=== PATIENT | male | born 1955 | race Hispanic/Latino ===

== ENCOUNTER → 2019-05-09 | Outpatient (CLI) | payer OTHER ==
[~2019-05-09] MED LIST: REGADENOSON 0.4 MG/5 ML PF SYG IVP SCH
== END | disposition home or self-care (01) ==
LOC: SHCH 07:56
PROVIDERS: ATTEND Internal Medicine Cardiovascular Disease
DX: I20.9 Angina pectoris, unspecified (principal); R07.9 Chest pain, unspecified
CPT/HCPCS: 78452; 93017; 96374; A9500 ×2; J2785

== ENCOUNTER → 2020-05-10 | Outpatient (CLI) | payer OTHER ==
[~2020-05-10] VITALS: Ht 177.8 cm; Wt 113.4 kg
[~2020-05-10] MED LIST changes: +ATOR40TA69 PO; +LISI-809 PO; +METF-444 PO; +MULT-1367 PO; +MV-M1TAB20 PO; +PIOG15TA66 PO; -REGADENOSON 0.4 MG/5 ML PF SYG IVP SCH; +Vitamin E
[2020-05-10 10:27] LABS: BASOPHILS % (AUTO) 0.3 % (0.0-5.0); EOSINOPHILS % (AUTO) 1.9 % (0.0-8.0); HEMATOCRIT 40.7 % (42-54); LYMPHOCYTES % (AUTO) 41.3 % (21.0-51.0); MEAN CORPUSCULAR HEMOGLOBIN 29.5 pg (27.0-33.0); MEAN CORPUSCULAR HGB CONC 33.2 g/dL (32.0-36.0); MEAN CORPUSCULAR VOLUME 88.9 fL (79-99); MONOCYTES % (AUTO) 5.9 % (3.0-13.0); NEUTROPHILS % (AUTO) 50.4 % (40.0-77.0); PLATELET COUNT (AUTO) 276 K/uL (130-400); RED BLOOD CELL COUNT(AUTO) 4.58 MIL/uL (4.50-6.20); RED CELL DISTRIBUTION WIDTH 13.5 % (11.0-15.5); WHITE BLOOD COUNT (AUTO) 9.1 K/uL (4.8-10.8)
[2020-05-10 10:28] LABS: APPEARANCE,URINE CLEAR (CLEAR); BILIRUBIN,URINE NEGATIVE (NEGATIVE); COLOR,URINE YELLOW (YELLOW); GLUCOSE, URINE (UA) NEGATIVE (NEGATIVE); KETONES,URINE NEGATIVE (NEGATIVE); LEUKOCYTE ESTERASE ,URINE NEGATIVE (NEGATIVE); NITRATE,URINE NEGATIVE (NEGATIVE); OCCULT BLOOD,URINE TRACE-LYSED (NEGATIVE); PROTEIN,URINE NEGATIVE (NEGATIVE); UROBILINOGEN,URINE 0.2 mg/dL (0.2-1.0)
[2020-05-10 10:36] LABS: CREATININE 0.8 mg/dL (0.5-1.5); POTASSIUM 4.2 mmol/L (3.5-5.1)
[2020-05-10 10:42] LABS: INR 1.14 (0.85-1.15); PROTHROMBIN TIME 12.3 SEC (9.6-11.6)
[2020-05-10 10:43] LABS: BACTERIA,URINE None Seen /HPF (None Seen); MUCUS,URINE Moderate LPF (None Seen); RBC,URINE 0-1 /HPF (0-1); SQUAMOUS EPITHELIAL CELL,UR 0-2 /HPF (0-2); WBC,URINE None Seen /HPF (0-1)
[2020-05-10 10:43] LABS: PARTIAL THROMBOPLASTIN TIME 27.7 SEC (26.3-35.5)
[2020-05-11 13:01] VITALS: BP 131/73
== END | disposition home or self-care (01) ==
LOC: EDSTATUS 09:00 → DAH 10:00
PROVIDERS: ATTEND Internal Medicine Cardiovascular Disease
DX: Z01.818 Encounter for other preprocedural examination (principal); I35.0 Nonrheumatic aortic (valve) stenosis; Z79.01 Long term (current) use of anticoagulants
CPT/HCPCS: 36415; 71045; 80048; 81001; 85025; 85610; 85730; 93005; A6260

== ENCOUNTER 2020-05-25 08:49 | Day surgery (SDC) | payer OTHER ==
[2020-05-21 14:24] LABS: BASOPHILS % (AUTO) 0.4 % (0.0-5.0); HEMATOCRIT 40.6 % (42-54); LYMPHOCYTES % (AUTO) 42.9 % (21.0-51.0); MEAN CORPUSCULAR HEMOGLOBIN 29.4 pg (27.0-33.0); MEAN CORPUSCULAR HGB CONC 32.5 g/dL (32.0-36.0); MEAN CORPUSCULAR VOLUME 90.4 fL (79-99); MONOCYTES % (AUTO) 4.4 % (3.0-13.0); NEUTROPHILS % (AUTO) 49.1 % (40.0-77.0); PLATELET COUNT (AUTO) 314 K/uL (130-400); RED BLOOD CELL COUNT(AUTO) 4.49 MIL/uL (4.50-6.20); RED CELL DISTRIBUTION WIDTH 13.6 % (11.0-15.5); WHITE BLOOD COUNT (AUTO) 12.3 K/uL (4.8-10.8)
[2020-05-21 14:26] LABS: APPEARANCE,URINE Clear (CLEAR); BILIRUBIN,URINE Negative (NEGATIVE); COLOR,URINE Yellow (YELLOW); GLUCOSE, URINE (UA) Negative (NEGATIVE); KETONES,URINE Trace mg/dL (NEGATIVE); LEUKOCYTE ESTERASE ,URINE Negative (NEGATIVE); NITRATE,URINE Negative (NEGATIVE); OCCULT BLOOD,URINE Negative (NEGATIVE); PH,URINE 5.5 (5.0-8.0); PROTEIN,URINE Negative (NEGATIVE)
[2020-05-21 14:35] LABS: INR 1.13 (0.85-1.15); PROTHROMBIN TIME 12.2 SEC (9.6-11.6)
[2020-05-21 14:36] LABS: PARTIAL THROMBOPLASTIN TIME 28.2 SEC (26.3-35.5)
[2020-05-21 14:37] LABS: CREATININE 0.8 mg/dL (0.5-1.5); POTASSIUM 4.4 mmol/L (3.5-5.1)
[2020-05-21 14:42] LABS: BACTERIA,URINE None Seen /HPF (None Seen); RBC,URINE None Seen /HPF (0-1); SQUAMOUS EPITHELIAL CELL,UR Rare /HPF (0-2); WBC,URINE 0-1 /HPF (0-1)
[2020-05-24 10:00] VITALS: BP 135/65
[2020-05-25] VITALS (12 sets, daily range): BP systolic 119–183; BP diastolic 60–99
[~2020-05-25] VITALS: Ht 177.8 cm; Wt 114.0 kg
[~2020-05-25 08:49] MED LIST changes: -MV-M1TAB20 PO; +SODIUM CHLORIDE 0.9% 1000ML 1,000 ML IV SCH; -Vitamin E
[2020-05-25 10:12] LABS: BASOPHILS % (AUTO) 0.4 % (0.0-5.0); EOSINOPHILS % (AUTO) 2.1 % (0.0-8.0); HEMATOCRIT 38.4 % (42-54); LYMPHOCYTES % (AUTO) 47.7 % (21.0-51.0); MEAN CORPUSCULAR HEMOGLOBIN 29.8 pg (27.0-33.0); MEAN CORPUSCULAR HGB CONC 33.6 g/dL (32.0-36.0); MEAN CORPUSCULAR VOLUME 88.7 fL (79-99); MONOCYTES % (AUTO) 6.4 % (3.0-13.0); NEUTROPHILS % (AUTO) 43.3 % (40.0-77.0); PLATELET COUNT (AUTO) 275 K/uL (130-400); RED BLOOD CELL COUNT(AUTO) 4.33 MIL/uL (4.50-6.20); RED CELL DISTRIBUTION WIDTH 13.4 % (11.0-15.5)
[2020-05-25] MEDS ORDERED: MULT-1367 PO (11:34)
[2020-05-25] MEDS ORDERED: Vitamin E (11:34)
[2020-05-25] MEDS ORDERED: MV-M1TAB20 PO (11:34)
[2020-05-25] MEDS ORDERED: IOHEXOL 350 MG/ML 100ML INFUS..BTL IV ONE (12:20)
[2020-05-25] MEDS ORDERED: HEPARIN SODIUM 1000UNIT/ML 10ML VIAL ONE (12:20)
[2020-05-25] MEDS ORDERED: MIDAZOLAM HCL 1 MG/ML 2ML VIAL ONE (12:20)
[2020-05-25] MEDS ORDERED: FENTANYL CITRATE PF 50 MCG/1 ML 2ML VIAL ONE (12:21)
[2020-05-25] MEDS ORDERED: LIDOCAINE HCL 1% MDV 50ML VIAL ONE (12:21)
[2020-05-25] MEDS ORDERED: NITROGLYCERIN 2 MG/VIAL VIAL IV ONE (12:41)
[2020-05-25] MEDS ORDERED: DEXTROSE 50%-WATER 50 ML DISP.SYRIN IV PRN (13:15)
[2020-05-25] MEDS ORDERED: GLUCAGON 1MG KIT 1 MG ML IM PRN (13:15)
[2020-05-25] MEDS ORDERED: IOHEXOL-350 50ML VIAL IV ONE (16:12)
[2020-05-25] MEDS ORDERED: IOHEXOL-350 75 ML VIAL IV ONE (16:19)
== END 2020-05-25 18:00 | disposition home or self-care (01) ==
LOC: DAH 08:49
PROVIDERS: ATTEND Internal Medicine Cardiovascular Disease
DX: I35.0 Nonrheumatic aortic (valve) stenosis (principal); I25.119 Atherosclerotic heart disease of native coronary artery with unspecified angina pectoris; I11.0 Hypertensive heart disease with heart failure; I50.32 Chronic diastolic (congestive) heart failure; E11.51 Type 2 diabetes mellitus with diabetic peripheral angiopathy without gangrene; E78.5 Hyperlipidemia, unspecified; Z98.890 Other specified postprocedural states; Z90.89 Acquired absence of other organs; Z90.49 Acquired absence of other specified parts of digestive tract; Z79.899 Other long term (current) drug therapy; Z79.84 Long term (current) use of oral hypoglycemic drugs; Z82.49 Family history of ischemic heart disease and other diseases of the circulatory system; Z83.3 Family history of diabetes mellitus; Z79.01 Long term (current) use of anticoagulants; Z72.89 Other problems related to lifestyle
CPT/HCPCS: 36415 ×2; 71045; 71270; 80048; 81001; 82948 ×2; 85025 ×2; 85610; 85730; 93005; 93456; A4215; A4216; A4221; A4222; A4223 ×3; A4606; A4663; C1760; C1894 ×3; J1644 ×2; J2250; J3010; J3490 ×2; J7030; Q9965 ×2; Q9967 ×2; 99156; 99157

== ENCOUNTER 2020-06-08 10:00 | Inpatient (IN) | payer OTHER ==
[~2020-06-08] VITALS: Ht 177.8 cm; Wt 116.4 kg
[~2020-06-08 10:00] MED LIST changes: -LISI-809 PO; +LISI5TAB21 PO; -SODIUM CHLORIDE 0.9% 1000ML 1,000 ML IV SCH
[2020-06-09 16:00] LABS: BASOPHILS % (AUTO) 0.3 % (0.0-5.0); HEMATOCRIT 39.7 % (42-54); MEAN CORPUSCULAR HEMOGLOBIN 29.4 pg (27.0-33.0); MONOCYTES % (AUTO) 6.4 % (3.0-13.0); PLATELET COUNT (AUTO) 307 K/uL (130-400); RED BLOOD CELL COUNT(AUTO) 4.46 MIL/uL (4.50-6.20); RED CELL DISTRIBUTION WIDTH 13.6 % (11.0-15.5); WHITE BLOOD COUNT (AUTO) 11.5 K/uL (4.8-10.8)
[2020-06-09 16:01] LABS: APPEARANCE,URINE Clear (CLEAR); BILIRUBIN,URINE Negative (NEGATIVE); COLOR,URINE Yellow (YELLOW); GLUCOSE, URINE (UA) Negative (NEGATIVE); KETONES,URINE Negative (NEGATIVE); LEUKOCYTE ESTERASE ,URINE Negative (NEGATIVE); NITRATE,URINE Negative (NEGATIVE); OCCULT BLOOD,URINE Negative (NEGATIVE); PROTEIN,URINE Negative (NEGATIVE)
[2020-06-09 16:13] LABS: INR 1.1 (0.85-1.15); PROTHROMBIN TIME 11.9 SEC (9.6-11.6)
[2020-06-09 16:16] LABS: ALBUMIN 3.9 g/dL (3.5-5.0); BILIRUBIN,DIRECT 0.1 mg/dL (0.0-0.3); BILIRUBIN,TOTAL 0.3 mg/dL (0.2-1.0); CREATININE 0.8 mg/dL (0.5-1.5); POTASSIUM 4.3 mmol/L (3.5-5.1); TOTAL PROTEIN, SERUM 7.8 g/dL (6.0-8.3)
[2020-06-14 13:13] VITALS: BP 140/68
[2020-06-15] VITALS (40 sets, daily range): BP systolic 80–196; BP diastolic 36–121
[2020-06-15] MEDS: CEFAZOLIN SODIUM 1 GM VIAL IVP SCH ×2 (06:00→08:15)
[2020-06-15] MEDS ORDERED: HEPARIN 10,000 UNIT/10ML (1,000 UNIT/ML) VIAL ONE (06:27)
[2020-06-15] MEDS ORDERED: CEFAZOLIN SODIUM 1 GM VIAL ONE ×2 (06:27→11:12)
[2020-06-15] MEDS ORDERED: PAPAVERINE HCL 30 MG/ML 2ML VIAL ONE (06:28)
[2020-06-15] MEDS ORDERED: NOREPINEPHRINE BITARTRATE 8 MG in 0.9% NACL 250ML 250 ML IV PRN (06:30)
[2020-06-15] MEDS ORDERED: 0.9%NACL 1000ML 1,000 ML IV ONE ×2 (06:46→12:07)
[2020-06-15] MEDS ORDERED: EPINEPHRINE PF 1MG AMP 10 MG in 0.9% NACL 250ML 240 ML IV PRN (06:51)
[2020-06-15] MEDS ORDERED: AMINOCAPROIC ACID 5,000MG VIAL 15,000 MG in 0.9% NACL 500ML IV.SOLN 420 ML IV PRN (06:58)
[2020-06-15] MEDS ORDERED: NITROGLYCERIN 50MG/D5W 250ML 1 BOT ONE (07:03)
[2020-06-15] MEDS ORDERED: AMIODARONE 150MG VIAL ONE (07:03)
[2020-06-15] MEDS ORDERED: DELNIDO FORMULA 2 BAG IV ONE (07:11)
[2020-06-15] MEDS ORDERED: NOREPINEPHRINE BITARTRATE 1 MG/1 ML ML IV ONE ×2 (07:22→07:53)
[2020-06-15] MEDS ORDERED: EPINEPHRINE PF 1MG AMP IVP ONE (07:53)
[2020-06-15] MEDS ORDERED: AMINOCAPROIC ACID 5,000MG VIAL IV ONE ×2 (07:53→15:58)
[2020-06-15] MEDS ORDERED: SODIUM BICARB 8.4% 50ML SYRINGE IVP ONE ×2 (07:53→15:58)
[2020-06-15] MEDS ORDERED: HEPARIN 10,000 UNIT/10ML (1,000 UNIT/ML) VIAL IV ONE ×2 (07:53→15:58)
[2020-06-15] MEDS ORDERED: ESMOLOL HCL 10 MG/ML 10 ML VIAL IVP ONE (07:53)
[2020-06-15] MEDS ORDERED: LIDOCAINE PF 100MG/5ML (2%) SYRINGE 5ML IVP ONE (07:53)
[2020-06-15] MEDS ORDERED: PROTAMINE SULFATE 10 MG/ML 25ML VIAL IV ONE (07:53)
[2020-06-15] MEDS ORDERED: PROPOFOL 10 MG/ML 20ML VIAL IV ONE (07:54)
[2020-06-15] MEDS ORDERED: FENTANYL CITRATE PF 50 MCG/1 ML 2ML VIAL IJ ONE (07:54)
[2020-06-15] MEDS ORDERED: MIDAZOLAM HCL 1 MG/ML 2ML VIAL IVPB ONE (07:55)
[2020-06-15] MEDS ORDERED: ROCURONIUM 10MG/1ML SYR 10 MG/ML ML IV ONE (07:55)
[2020-06-15] MEDS ORDERED: KETAMINE 50MG/ML SYRINGE 50 MG/ML DISP.SYRIN IV ONE (07:55)
[2020-06-15 08:11] LABS: ABG BASE EXCESS -1.2 mmol/L (-2.0-3.0); ABG HCO3 25.1 mmol/L (21.0-28.0); ABG OXYGEN SATURATION 99.1 % (95.0-99.0); ABG PCO2 48 mmHg (35-48)
[2020-06-15] MEDS ORDERED: CEFAZOLIN SODIUM 1 GM VIAL IVP ONE (08:15)
[2020-06-15] MEDS ORDERED: DELNIDO FORMULA 1 BAG IV ONE (09:38)
[2020-06-15] MEDS ORDERED: ANTITHROMBIN III 500 UNIT VIAL IV SCH ×2 (09:42→09:56)
[2020-06-15] MEDS ORDERED: ROCURONIUM BROMIDE 10MG/1ML 5ML VL ONE (10:36)
[2020-06-15] MEDS ORDERED: GLYCOPYRROLATE 1 MG/5 ML SYRINGE IV ONE (11:53)
[2020-06-15] MEDS ORDERED: THROMBIN-JMI 20000 UNIT KIT TP ONE (11:58)
[2020-06-15] MEDS ORDERED: ALBUMIN (HUMAN) 5% 250 ML IV ONE (13:07)
[2020-06-15 13:30] LABS: HEMATOCRIT 29.4 % (42-54); MEAN CORPUSCULAR HEMOGLOBIN 29.6 pg (27.0-33.0); MEAN CORPUSCULAR HGB CONC 33.7 g/dL (32.0-36.0); PLATELET COUNT (AUTO) 127 K/uL (130-400); RED BLOOD CELL COUNT(AUTO) 3.34 MIL/uL (4.50-6.20); RED CELL DISTRIBUTION WIDTH 13.6 % (11.0-15.5); WHITE BLOOD COUNT (AUTO) 18.5 K/uL (4.8-10.8)
[2020-06-15 13:36] LABS: ABG BASE EXCESS -3.1 mmol/L (-2.0-3.0); ABG HCO3 20.1 mmol/L (21.0-28.0); ABG OXYGEN SATURATION 97.8 % (95.0-99.0); ABG PCO2 31 mmHg (35-48)
[2020-06-15 13:44] LABS: INR 1.42 (0.85-1.15)
[2020-06-15 13:45] LABS: PARTIAL THROMBOPLASTIN TIME 34.5 SEC (26.3-35.5)
[2020-06-15 13:46] LABS: ALBUMIN 1.9 g/dL (3.5-5.0); BILIRUBIN,TOTAL 0.8 mg/dL (0.2-1.0); CREATININE 0.5 mg/dL (0.5-1.5); MAGNESIUM 1.7 mg/dL (1.80-2.40); PHOSPHORUS 3.2 mg/dL (2.5-4.9); POTASSIUM 3.5 mmol/L (3.5-5.1); TOTAL PROTEIN, SERUM 3.8 g/dL (6.0-8.3)
[2020-06-15 14:03] LABS: BAND NEUTROPHILS % (MANUAL) 10 % (0-2); LYMPHOCYTES % (MANUAL) 3 % (22-44); MONOCYTES % (MANUAL) 9 % (2-9); REACTIVE LYMPHOCYTES 1 % (0-0); SEGMENTED NEUTROPHILS % 77 % (40-70)
[2020-06-15 14:04] LABS: MAN.DIFF COMMENT-IMPRESSION MANUAL DIFFERENTIAL; PLATELET MORPHOLOGY COMMENT SLIGHTLY DECREASED
[2020-06-15] MEDS ORDERED: MAGNESIUM 2GM PREMIX 50ML 50 ML IV ONE (14:12)
[2020-06-15] MEDS ORDERED: POTASSIUM CHLORIDE 20MEQ/100ML 100 ML IV ONE (14:12)
[2020-06-15] MEDS ORDERED: CALCIUM GLUC 1GM 1 GM in 0.9%NACL 50ML 50 ML IV SCH (14:30)
[2020-06-15] MEDS ORDERED: MORPHINE 4 MG SYG IVP PRN (14:30)
[2020-06-15] MEDS ORDERED: NOREPINEPHRIN 8MG/250ML NS PMX 250 ML IV SCH (14:30)
[2020-06-15] MEDS ORDERED: ALBUMIN (HUMAN) 5% 250 ML IV SCH (14:30)
[2020-06-15] MEDS ORDERED: PROPOFOL 1000 MG/100 ML 100 ML IV SCH (14:30)
[2020-06-15] MEDS ORDERED: NITROGLYCERIN 50MG/D5W 250ML 250 BOT IV SCH (14:30)
[2020-06-15] MEDS ORDERED: 0.9% NACL 250ML 250 ML IV SCH (14:30)
[2020-06-15] MEDS ORDERED: NICARDIPINE 100 MG/100ML IV SCH ×2 (14:30)
[2020-06-15] MEDS ORDERED: ONDANSETRON 4MG INJ IVP PRN (14:30)
[2020-06-15] MEDS ORDERED: ACETAMINOPHEN 650 MG SUPPOSITORY RC PRN (14:30)
[2020-06-15] MEDS ORDERED: MAGNESIUM 2GM PREMIX 50ML 50 ML IV SCH (14:30)
[2020-06-15] MEDS ORDERED: ACETAMINOPHEN 325 MG TAB PO PRN (14:30)
[2020-06-15] MEDS ORDERED: LIDOCAINE HCL-MPF 1% 2ML VIAL IJ PRN (14:45)
[2020-06-15] MEDS ORDERED: SODIUM BICARB 50MEQ 50ML VIAL IV PRN (14:45)
[2020-06-15] MEDS ORDERED: POTASSIUM PHOS 15 mMOL+NS250ML 250 ML IV PRN (14:45)
[2020-06-15] MEDS ORDERED: DEXTROSE 50%-WATER 50 ML DISP.SYRIN IV PRN (14:45)
[2020-06-15] MEDS ORDERED: GLUCAGON 1MG KIT 1 MG ML IM PRN (14:45)
[2020-06-15] MEDS ORDERED: HEPARIN 10,000 UNIT VIAL IJ ONE (15:58)
[2020-06-15] MEDS ORDERED: MANNITOL 25% 50ML VIAL IV ONE (15:58)
[2020-06-15] MEDS ORDERED: CACL 1GM SYG IVP ONE (15:58)
[2020-06-15] MEDS ORDERED: ALBUMIN (HUMAN) 25% 50 ML IV ONE (15:58)
[2020-06-15] MEDS: INSULIN IV SS2 IV PRN ×2 (15:59)
[2020-06-15 18:15] LABS: CREATININE 0.8 mg/dL (0.5-1.5); MAGNESIUM 2.5 mg/dL (1.80-2.40); POTASSIUM 4.2 mmol/L (3.5-5.1)
[2020-06-15 19:43] LABS: ABG BASE EXCESS -2.1 mmol/L (-2.0-3.0); ABG HCO3 21.9 mmol/L (21.0-28.0); ABG OXYGEN SATURATION 97.6 % (95.0-99.0); ABG PCO2 35 mmHg (35-48)
[2020-06-15] MEDS: FAMOTIDINE 20MG VIAL IV SCH (20:10)
[2020-06-15] MEDS: POTASSIUM CHLORIDE 20MEQ/100ML 100 ML IV PRN (20:14)
[2020-06-15 20:29] LABS: ABG OXYGEN SATURATION 95.5 % (95.0-99.0); ABG PCO2 36 mmHg (35-48)
[2020-06-15] MEDS: MORPHINE 2 MG SYG IVP PRN (20:54)
[2020-06-16] VITALS (44 sets, daily range): BP systolic 101–140; BP diastolic 50–74
[2020-06-16] MEDS ORDERED: NICARDIPINE 25MG INJ IV ONE ×2 (03:24→04:58)
[2020-06-16] MEDS ORDERED: 0.9%NACL 100ML 0 ML IV ONE (03:25)
[2020-06-16 04:05] LABS: ABG BASE EXCESS -0.5 mmol/L (-2.0-3.0); ABG HCO3 23.5 mmol/L (21.0-28.0); ABG PCO2 36 mmHg (35-48)
[2020-06-16] MEDS: POTASSIUM CHLORIDE 20MEQ/100ML 100 ML IV PRN (04:17)
[2020-06-16 04:35] LABS: HEMATOCRIT 34.4 % (42-54); MEAN CORPUSCULAR HEMOGLOBIN 29.2 pg (27.0-33.0); MEAN CORPUSCULAR HGB CONC 32.8 g/dL (32.0-36.0); MEAN CORPUSCULAR VOLUME 88.9 fL (79-99); RED BLOOD CELL COUNT(AUTO) 3.87 MIL/uL (4.50-6.20); RED CELL DISTRIBUTION WIDTH 14.1 % (11.0-15.5)
[2020-06-16 04:43] LABS: CREATININE 0.9 mg/dL (0.5-1.5); MAGNESIUM 2.6 mg/dL (1.80-2.40); PHOSPHORUS 3.4 mg/dL (2.5-4.9); POTASSIUM 3.9 mmol/L (3.5-5.1)
[2020-06-16 04:50] LABS: INR 1.17 (0.85-1.15); PROTHROMBIN TIME 12.6 SEC (9.6-11.6)
[2020-06-16 04:51] LABS: PARTIAL THROMBOPLASTIN TIME 28.2 SEC (26.3-35.5)
[2020-06-16] MEDS ORDERED: 0.9%NACL 100ML 100 ML IV ONE (04:58)
[2020-06-16 05:00] LABS: ABG BASE EXCESS -0.6 mmol/L (-2.0-3.0); ABG HCO3 24.2 mmol/L (21.0-28.0); ABG OXYGEN SATURATION 91.6 % (95.0-99.0); ABG PCO2 41 mmHg (35-48)
[2020-06-16] MEDS: 0.9% NACL 500ML IV.SOLN 500 ML IV SCH (05:00)
[2020-06-16] MEDS: MORPHINE 2 MG SYG IVP PRN ×4 (05:28→19:36)
[2020-06-16] MEDS: METOPROLOL TARTRATE 25 MG TAB PO SCH ×2 (09:00→20:04)
[2020-06-16] MEDS: HYDROCODONE/ACETAMINOPHEN 5/325 MG TAB PO PRN ×2 (09:28→13:46)
[2020-06-16] MEDS: ASPIRIN 81MG CHEW TAB PO SCH (09:28)
[2020-06-16] MEDS: FAMOTIDINE 20MG VIAL IV SCH ×2 (09:28→20:04)
[2020-06-16] MEDS: INSULIN IV SS2 IV PRN ×2 (18:09)
[2020-06-16] MEDS: LISINOPRIL 5 MG TABLET PO SCH (20:04)
[2020-06-16] MEDS: ATORVASTATIN 10 MG TABLET PO SCH (20:04)
[2020-06-17] VITALS (46 sets, daily range): BP systolic 79–145; BP diastolic 51–87
[2020-06-17] MEDS: MORPHINE 2 MG SYG IVP PRN ×2 (02:20→09:41)
[2020-06-17 03:48] LABS: BASOPHILS % (AUTO) 0.2 % (0.0-5.0); EOSINOPHILS % (AUTO) 0.1 % (0.0-8.0); HEMATOCRIT 27.8 % (42-54); LYMPHOCYTES % (AUTO) 14.4 % (21.0-51.0); MEAN CORPUSCULAR HEMOGLOBIN 29.8 pg (27.0-33.0); MEAN CORPUSCULAR HGB CONC 33.5 g/dL (32.0-36.0); MEAN CORPUSCULAR VOLUME 89.1 fL (79-99); MONOCYTES % (AUTO) 9.1 % (3.0-13.0); NEUTROPHILS % (AUTO) 75.6 % (40.0-77.0); PLATELET COUNT (AUTO) 133 K/uL (130-400); RED BLOOD CELL COUNT(AUTO) 3.12 MIL/uL (4.50-6.20); RED CELL DISTRIBUTION WIDTH 14.2 % (11.0-15.5); WHITE BLOOD COUNT (AUTO) 21.9 K/uL (4.8-10.8)
[2020-06-17 03:57] LABS: CREATININE 0.9 mg/dL (0.5-1.5); POTASSIUM 3.8 mmol/L (3.5-5.1)
[2020-06-17] MEDS: 0.9% NACL 500ML IV.SOLN 500 ML IV SCH (04:01)
[2020-06-17] MEDS: HYDROCODONE/ACETAMINOPHEN 5/325 MG TAB PO PRN ×2 (04:56→23:50)
[2020-06-17] MEDS ORDERED: POTASSIUM CHLORIDE 10% ELIXIR 20 MEQ/15 ML UDCUP PO PRN (08:30)
[2020-06-17] MEDS ORDERED: KCL 20 MEQ ERTAB PO ONE (08:36)
[2020-06-17] MEDS: METOPROLOL TARTRATE 50 MG TAB PO SCH ×2 (08:44→20:55)
[2020-06-17] MEDS: ASPIRIN 81MG CHEW TAB PO SCH (08:44)
[2020-06-17] MEDS: FAMOTIDINE 20MG VIAL IV SCH ×3 (08:45→21:00)
[2020-06-17] MEDS: KCL 20 MEQ ERTAB PO PRN (08:45)
[2020-06-17] MEDS: ENOXAPARIN SODIUM 40 MG/0.4 ML SYRINGE SQ SCH (10:55)
[2020-06-17] MEDS: LISINOPRIL 5 MG TABLET PO SCH (20:57)
[2020-06-17] MEDS: ATORVASTATIN 10 MG TABLET PO SCH (20:58)
[2020-06-18] VITALS (15 sets, daily range): BP systolic 111–144; BP diastolic 60–86
[2020-06-18] MEDS: HYDROCODONE/ACETAMINOPHEN 5/325 MG TAB PO PRN ×3 (03:23→18:42)
[2020-06-18] MEDS: 0.9% NACL 500ML IV.SOLN 500 ML IV SCH (05:00)
[2020-06-18 05:16] LABS: BASOPHILS % (AUTO) 0.2 % (0.0-5.0); HEMATOCRIT 28.7 % (42-54); MEAN CORPUSCULAR HEMOGLOBIN 29.9 pg (27.0-33.0); MEAN CORPUSCULAR HGB CONC 33.1 g/dL (32.0-36.0); MEAN CORPUSCULAR VOLUME 90.3 fL (79-99); MONOCYTES % (AUTO) 8.6 % (3.0-13.0); NEUTROPHILS % (AUTO) 68.7 % (40.0-77.0); PLATELET COUNT (AUTO) 143 K/uL (130-400); RED BLOOD CELL COUNT(AUTO) 3.18 MIL/uL (4.50-6.20); RED CELL DISTRIBUTION WIDTH 13.6 % (11.0-15.5); WHITE BLOOD COUNT (AUTO) 17.5 K/uL (4.8-10.8)
[2020-06-18 05:39] LABS: CREATININE 0.8 mg/dL (0.5-1.5); MAGNESIUM 2.2 mg/dL (1.80-2.40); POTASSIUM 4.3 mmol/L (3.5-5.1)
[2020-06-18] MEDS: ENOXAPARIN SODIUM 40 MG/0.4 ML SYRINGE SQ SCH (09:00)
[2020-06-18] MEDS ORDERED: FUROSEMIDE 20MG VIAL IVP SCH (09:15)
[2020-06-18] MEDS: FAMOTIDINE 20MG VIAL IV SCH ×2 (09:40→20:35)
[2020-06-18] MEDS: ASPIRIN 81MG CHEW TAB PO SCH (09:40)
[2020-06-18] MEDS: METOPROLOL TARTRATE 50 MG TAB PO SCH ×2 (09:40→20:35)
[2020-06-18] MEDS: LISINOPRIL 5 MG TABLET PO SCH (20:34)
[2020-06-18] MEDS: ATORVASTATIN 10 MG TABLET PO SCH (20:35)
[2020-06-19] VITALS: BP 132/82
[2020-06-19 04:00] VITALS: BP 145/84
[2020-06-19 04:31] LABS: MEAN CORPUSCULAR HEMOGLOBIN 29.8 pg (27.0-33.0); MEAN CORPUSCULAR HGB CONC 33.4 g/dL (32.0-36.0); MEAN CORPUSCULAR VOLUME 89.2 fL (79-99); PLATELET COUNT (AUTO) 187 K/uL (130-400); RED BLOOD CELL COUNT(AUTO) 3.25 MIL/uL (4.50-6.20); RED CELL DISTRIBUTION WIDTH 13.4 % (11.0-15.5); WHITE BLOOD COUNT (AUTO) 13.6 K/uL (4.8-10.8)
[2020-06-19 04:45] LABS: BASOPHILS % (AUTO) 0.3 % (0.0-5.0); EOSINOPHILS % (AUTO) 1.8 % (0.0-8.0); LYMPHOCYTES % (AUTO) 27.2 % (21.0-51.0); MONOCYTES % (AUTO) 8.9 % (3.0-13.0); NEUTROPHILS % (AUTO) 61.3 % (40.0-77.0)
[2020-06-19 04:55] LABS: CREATININE 0.8 mg/dL (0.5-1.5); MAGNESIUM 2.1 mg/dL (1.80-2.40); POTASSIUM 3.4 mmol/L (3.5-5.1)
[2020-06-19] MEDS: 0.9% NACL 500ML IV.SOLN 500 ML IV SCH (05:00)
[2020-06-19] MEDS: KCL 20 MEQ ERTAB PO PRN ×2 (06:13→08:19)
[2020-06-19 08:00] VITALS: BP 160/82
[2020-06-19] MEDS ORDERED: KCL 20 MEQ ERTAB PO SCH (08:15)
[2020-06-19] MEDS: METOPROLOL TARTRATE 50 MG TAB PO SCH (08:20)
[2020-06-19] MEDS: ASPIRIN 81MG CHEW TAB PO SCH (08:20)
[2020-06-19] MEDS ORDERED: CLOPIDOGREL 75MG TAB PO SCH (09:00)
[2020-06-19] MEDS ORDERED: FAMOTIDINE 20MG TAB PO SCH (09:00)
[2020-06-19 12:00] VITALS: BP 122/84
[2020-06-19 16:00] VITALS: BP 151/94
== END 2020-06-19 17:48 | DRG 219 ==
LOC: EDSTATUS 10:00 → DAHIP 06-15 05:50 → 2CV 06-15 11:58 → 2CH 06-16 07:36 → 4CH 06-18 16:12
PROVIDERS: ADMIT Thoracic Surgery (Cardiothoracic Vascular Surgery); ATTEND Thoracic Surgery (Cardiothoracic Vascular Surgery)
PROC: 5A1221Z Performance of Cardiac Output, Continuous (ICD-10-PCS; 2020-06-15)
PROC: B24BZZ4 Ultrasonography of Heart with Aorta, Transesophageal (ICD-10-PCS; 2020-06-15)
PROC: 5A2204Z Restoration of Cardiac Rhythm, Single (ICD-10-PCS; 2020-06-15)
PROC: 05HY33Z Insertion of Infusion Device into Upper Vein, Percutaneous Approach (ICD-10-PCS; 2020-06-15)
PROC: 02RF08Z Replacement of Aortic Valve with Zooplastic Tissue, Open Approach (ICD-10-PCS; principal; 2020-06-15 07:43)
PROC: 02100Z9 Bypass Coronary Artery, One Artery from Left Internal Mammary, Open Approach (ICD-10-PCS; 2020-06-15 07:43)
DX: I25.10 Atherosclerotic heart disease of native coronary artery without angina pectoris (principal); R65.11 Systemic inflammatory response syndrome (SIRS) of non-infectious origin with acute organ dysfunction; J96.00 Acute respiratory failure, unspecified whether with hypoxia or hypercapnia; Q23.1 Congenital insufficiency of aortic valve; E11.9 Type 2 diabetes mellitus without complications; E66.9 Obesity, unspecified; Z20.822 Contact with and (suspected) exposure to COVID-19; E78.5 Hyperlipidemia, unspecified; I10 Essential (primary) hypertension; Z79.82 Long term (current) use of aspirin; Z68.36 Body mass index [BMI] 36.0-36.9, adult
CPT/HCPCS: 36415; 71045; 80048; 80053; 80076; 81003; 82435; 82803; 82947; 82948; 83036; 83605; 83735; 84100; 84132; 84295; 85018; 85025; 85027; 85347; 85610; 85730; 86850; 86900; 86901; 86923; 93005; 93313; 93318; 94002; 97039; A7048; C1729; C1757; G0378; J0171; J0282; J0690; J1644; J1650; J1815; J1940; J2001; J2150; J2250; J2440; J2704; J2720; J3010; J3475; J3480; J3490; J7030; J7040; J7197; P9045; P9047; U0003

== ENCOUNTER → 2024-06-04 | Outpatient (CLI) | payer OTHER | END | disposition home or self-care (01) | LOC: SHCH 10:37 | PROVIDERS: ATTEND Internal Medicine Cardiovascular Disease | DX: I34.89 Other nonrheumatic mitral valve disorders (principal); Z95.2 Presence of prosthetic heart valve | CPT/HCPCS: 93306 ==